=== PATIENT | male | born 1985 | race Caucasian/White ===

== ENCOUNTER 2020-04-01 06:34 | Day surgery (SDC) | payer OTHER ==
[~2020-04-01] VITALS: Ht 182.9 cm; Wt 98.9 kg
[2020-04-01 09:15] VITALS: BP 105/62
== END 2020-04-01 09:25 | disposition home or self-care (01) | DRG 392 ==
LOC: ENDO 06:34 → ORM 09:30
PROVIDERS: ATTEND Surgery
PROC: 0DB98ZX Excision of Duodenum, Via Natural or Artificial Opening Endoscopic, Diagnostic (ICD-10-PCS; principal; 2020-04-01)
DX: K21.00 Gastro-esophageal reflux disease with esophagitis, without bleeding (principal); K29.80 Duodenitis without bleeding; F17.210 Nicotine dependence, cigarettes, uncomplicated; Z20.828 Contact with and (suspected) exposure to other viral communicable diseases

== ENCOUNTER 2020-08-03 15:38 | Emergency (ER) | payer OTHER ==
[~2020-08-03] VITALS: Ht 182.9 cm; Wt 105.0 kg
[2020-08-03] MEDS ORDERED: CIPROFLOXACN500 MG PO ×2 (17:23→17:26)
[2020-08-03 17:40] VITALS: BP 136/81
== END 2020-08-03 17:40 | disposition home or self-care (01) | DRG 914 ==
LOC: ED 15:38
DX: S91.142A Puncture wound with foreign body of left great toe without damage to nail, initial encounter (principal); F17.210 Nicotine dependence, cigarettes, uncomplicated; W60.XXXA Contact with nonvenomous plant thorns and spines and sharp leaves, initial encounter; Y93.H2 Activity, gardening and landscaping